=== PATIENT | female | born 1975 | race Caucasian/White ===

== ENCOUNTER 2022-09-21 13:21 | Emergency (ER) | payer OTHER, BC ==
[~2022-09-21] VITALS: Ht 154.9 cm; Wt 90.0 kg
[2022-09-21] MEDS ORDERED: LORTAB 7.57.5 MG PO (17:05)
[2022-09-21] MEDS ORDERED: NAPROXEN500 MG PO (17:05)
[2022-09-21] MEDS ORDERED: METHOCARBAMOL500 MG PO (17:10)
[2022-09-21 17:24] VITALS: BP 176/97
== END 2022-09-21 17:38 | disposition home or self-care (01) | DRG 563 ==
LOC: ED 13:21
PROC: 2W3MXYZ Immobilization of Left Lower Extremity using Other Device (ICD-10-PCS; principal; 2022-09-21)
DX: M23.92 Unspecified internal derangement of left knee (principal); M54.59 Other low back pain; W11.XXXA Fall on and from ladder, initial encounter; M25.462 Effusion, left knee